=== PATIENT | female | born 1945 | race Caucasian/White ===

== ENCOUNTER 2018-10-07 11:18 | Inpatient (IN) | payer MEDICARE ==
[2018-10-07] MEDS ORDERED: traMADol HCl 50 MG TAB PO PRN (16:50)
[2018-10-07] MEDS ORDERED: Bisacodyl 5 MG TAB PO PRN (16:50)
[2018-10-07] MEDS ORDERED: Methocarbamol 500 MG TAB PO PRN (16:50)
[2018-10-07] MEDS ORDERED: HYDROcodone/Acetaminophen 10/325 mg Tablet PO PRN (16:50)
[2018-10-07] MEDS ORDERED: Ventolin HFA Inhaler 60 PUFF INHALER INH PRN (16:50)
[2018-10-07] MEDS ORDERED: Zolpidem Tartrate 5 MG TAB PO PRN (16:50)
[2018-10-07] MEDS ORDERED: Non-Formulary Item 1 EACH (Acetaminophen [Tylenol] 650 MG) PO SCH (17:00)
[2018-10-07] MEDS ORDERED: Non-Formulary Item 1 EACH (Acetaminophen [Tylenol] 650 MG) PO PRN (17:22)
[2018-10-07] MEDS ORDERED: Acetaminophen 325 MG TAB PO PRN (17:24)
[2018-10-07] MEDS ORDERED: diphenhydrAMINE 25 MG CAP PO PRN (17:39)
[2018-10-07] MEDS: HYDROcodone/Acetaminophen 10/325 mg Tablet PO PRN ×2 (17:50→21:59)
[2018-10-07] MEDS: Famotidine 20 MG TAB PO SCH (20:36)
[2018-10-07] MEDS ORDERED: Dronedarone HCl 400 MG TAB PO SCH (21:00)
--- NOTE | 2018-10-08 00:03 | HP ---
PRINCIPAL DIAGNOSIS: Status post right total shoulder replacement for physical therapy. BRIEF HISTORY: This is a 73-year-old female, who was admitted to the hospital for elective right total shoulder replacement. Postoperative period was uneventful and she was felt to be a candidate for rehabilitation, so transferred here to [place]. The patient is currently resting in bed and denies any complaints. Her family is in the room. Her pain is controlled. Denies any focal numbness, weakness, or fainting spells. PAST MEDICAL HISTORY: 1. Paroxysmal atrial fibrillation. 2. Hypertension. 3. Dyslipidemia. 4. Gastroesophageal reflux disease. 5. History of CHF, but not known whether it is systolic or diastolic. 6. Mitral valve prolapse. PAST SURGICAL HISTORY: 1. Appendectomy. 2. Laminectomy. 3. Hysterectomy. 4. D and C x2. 5. Cardioversion for atrial fibrillation. 6. Recent right shoulder arthroplasty. PSYCHOSOCIAL HISTORY: Denies any alcohol, tobacco, or IV drug abuse. FAMILY HISTORY: Positive for heart disease. MEDICATIONS: She has been transferred here on the following medications; 1. [place] 10/325 every 1 to 2 tabs q.6 p.r.n. 2. Ventolin HFA one puff q.8 p.r.n. 3. Ecotrin 325 daily. 4. Dulcolax tablet 10 mg q.6 p.r.n. 5. Multaq 200 mg in the evening and 400 in the morning . 6. Drisdol 1.25 mg p.o. twice a week. 7. Cozaar 50 mg daily. 8. Robaxin 1500 mg q.i.d. p.r.n. muscle spasm. 9. Lasix 20 mg p.o. daily if systolic blood pressure is elevated more than 140. 10. Potassium 10 mEq daily only if she takes the Lasix 20 mg daily. 11. Tramadol 50 mg q.6 p.r.n. 12. Ambien 5 mg nightly p.r.n. ALLERGIES: NO KNOWN DRUG ALLERGIES. PHYSICAL EXAMINATION: GENERAL: A very pleasant 73-year-old female, who is resting in bed and denies any concerns. Family is in the room. She is alert, awake, and oriented x3. VITAL SIGNS: She is afebrile. Heart rate 63, respirations 16, oxygen saturation 93% on room air, and blood pressure 152/65. HEENT: Normocephalic and atraumatic. Pupils are equally reactive to light and accommodation. NECK: No JVD, thyromegaly, cervical lymphadenopathy, throat exudates, or carotid bruits. RESPIRATORY SYSTEM: Normal vesicular breath sounds heard in all lung cardona. ABDOMEN: Soft and nontender. Bowel sounds heard in all quadrants. EXTREMITIES: Without cyanosis or clubbing. Peripheral pulses are palpable. Right shoulder with dressing and splinting. No neurovascular compromise. CENTRAL NERVOUS SYSTEM: Awake and responsive. Cranial nerves 2 through 12 intact. Generalized weakness. LABORATORY VALUES: None done recently. IMPRESSION: 1. Status post right total shoulder arthroplasty. 2. Hypertension. 3. Paroxysmal atrial fibrillation. 4. Mitral valve prolapse. 5. Dyslipidemia. 6. Osteoarthritis. PLAN: 1. Continue discharge medications. 2. Heart healthy diet. 3. Monitor heart rate and rhythm. 4. Orthopedic precautions and incision care. 5. DVT prophylaxis. 6. Decubitus precaution. 7. Stress ulcer prophylaxis. 8. Routine laboratory values with CBC and BMP. 9. PT/OT evaluation and treat. 10. Discussed with the patient and family in detail. All questions answered. Job ID: [id number]
[2018-10-08] MEDS: HYDROcodone/Acetaminophen 10/325 mg Tablet PO PRN ×3 (02:09→22:04)
[2018-10-08 05:22] LABS: #Basophils 0.1 thou/uL (0.0-0.2); #Eosinphils 0.3 thou/uL (0.0-0.7); #Lymphocytes 1.2 thou/uL (1.20-3.40); #Monocytes 0.5 thou/uL (0.11-0.59); #Neutrophils 3.5 thou/uL (1.40-6.50); %Basophils 1.2 % (0.0-1.0); %Eosinophils 5.6 % (0.0-10.0); %Lymphocytes 20.9 % (21.0-51.0); %Monocytes 8.8 % (0.0-10.0); %Neutrophils 63.5 % (42.0-75.0); Hemoglobin 9.9 g/dL (12.0-16.0); Mean Corpuscular HGB CONC 31.6 g/dL (32.0-36.0); Mean Corpuscular Hemoglobin 31.3 pg (27.0-31.0); Mean Corpuscular Volume 99.2 fL (78.0-98.0); Mean Platelet Volume 7.4 fL (7.4-10.4); Platelet Count 268 thou/uL (130-400); RBC Distribution Width 12.2 % (11.5-14.5); Red Blood Cell (RBC) Count 3.14 mill/uL (4.20-5.40); White Blood Cell (WBC) Count 5.6 thou/uL (4.8-10.8)
[2018-10-08 05:38] LABS: Anion Gap 12 mmol/L (10-20); BUN (Urea Nitrogen) 17 mg/dL (9.8-20.1); Calc. Creatinine Clearance 102 mL/min (70-130); Calcium 8.4 mg/dL (7.8-10.44); Carbon Dioxide 28 mmol/L (23-31); Chloride 101 mmol/L (98-107); Estimated GFR-MDRD 77; Glucose 101 mg/dL (83-110); Potassium 4.2 mmol/L (3.5-5.1); Sodium 137 mmol/L (136-145)
[2018-10-08] MEDS: Famotidine 20 MG TAB PO SCH ×2 (08:13→20:31)
[2018-10-08] MEDS ORDERED: Multivitamin W/ Minerals 1 TAB PO SCH (09:00)
[2018-10-08] MEDS ORDERED: Losartan 25 MG TAB PO SCH (09:00)
[2018-10-08] MEDS ORDERED: Magnesium Oxide 400 MG TAB PO SCH (09:00)
[2018-10-08] MEDS ORDERED: Aspirin 325 mg Enteric Coated Tablet PO SCH (09:00)
[2018-10-08] MEDS ORDERED: Non-Formulary Item 1 EACH (Vitamin E [Vitamin E] 400 UNIT) PO SCH (09:00)
[2018-10-08] MEDS ORDERED: Potassium Chloride 10 MEQ TAB PO SCH (09:00)
[2018-10-08] MEDS ORDERED: Ergocalciferol 1.25 MG(50,000 UNITS) CAP PO SCH ×2 (09:00→11:59)
[2018-10-08] MEDS ORDERED: diphenhydrAMINE 25 MG CAP PO PRN (11:59)
[2018-10-08] MEDS ORDERED: Bisacodyl 5 MG TAB PO PRN (11:59)
[2018-10-08] MEDS ORDERED: Methocarbamol 500 MG TAB PO PRN (12:00)
[2018-10-08] MEDS ORDERED: traMADol HCl 50 MG TAB PO PRN (12:01)
[2018-10-08] MEDS ORDERED: Ventolin HFA Inhaler 60 PUFF INHALER INH PRN (12:01)
[2018-10-08] MEDS ORDERED: Acetaminophen 325 MG TAB PO PRN (12:02)
[2018-10-08] MEDS ORDERED: Zolpidem Tartrate 5 MG TAB PO PRN (12:02)
--- NOTE | 2018-10-08 13:20 | PRG ---
DATE OF SERVICE: 10/08/2018 SUBJECTIVE: Ms. Klein is doing well. Denies any complaints. Resting comfortably. She would like PlexiPulses because she has lymphedema. She is getting up and moving around. Denies any other concerns or questions. Son is in the room. OBJECTIVE: VITAL SIGNS: She is afebrile, heart rate 62, respirations 16, oxygen saturation 96% on room air, and blood pressure 144/79. CARDIOVASCULAR SYSTEM: S1 and S2 plus. RESPIRATORY SYSTEM: Normal vesicular breath sounds. ABDOMEN: Soft and nontender. Bowel sounds heard in all quadrants. EXTREMITIES: Without cyanosis or clubbing. Right shoulder incision with dressing and right arm in a sling/splint. CENTRAL NERVOUS SYSTEM: Awake and responsive. Cranial nerves 2 through 12 intact. Generalized weakness. LABORATORY VALUES: White count is 5.6, H and H are 9.9 and 31.2. Sodium 137, potassium 4.2, BUN and creatinine pf 17 and 0.74. IMPRESSION: 1. Status post right total shoulder arthroplasty for osteoarthritis. 2. Paroxysmal atrial fibrillation. 3. Hypertension. 4. Dyslipidemia. 5. Gastroesophageal reflux disease. 6. History of lymphedema. 7. Mitral valve prolapse. 8. Deconditioning. PLAN: 1. Continue heart healthy diet. 2. Monitor heart rate and rhythm. 3. DVT prophylaxis with PlexiPulses. 4. Decubitus precautions. 5. Orthopedic precautions. 6. Pain control. 7. Routine laboratory values. 8. Continue physical therapy. 9. Discussed with the patient in detail. All questions answered. Job ID: [id number]
[2018-10-08] MEDS: Dronedarone HCl 400 MG TAB PO SCH (20:32)
[2018-10-09] MEDS: Aspirin 325 mg Enteric Coated Tablet PO SCH (09:45)
[2018-10-09] MEDS: Vitamin E 400 UNITS CAP PO SCH (09:46)
[2018-10-09] MEDS: Famotidine 20 MG TAB PO SCH ×2 (09:46→21:24)
[2018-10-09] MEDS: Losartan 25 MG TAB PO SCH (09:46)
[2018-10-09] MEDS: Potassium Chloride 10 MEQ TAB PO SCH (09:46)
[2018-10-09] MEDS: Multivitamin W/ Minerals 1 TAB PO SCH (09:47)
[2018-10-09] MEDS: Magnesium Oxide 400 MG TAB PO SCH (09:52)
[2018-10-09] MEDS: HYDROcodone/Acetaminophen 10/325 mg Tablet PO PRN ×3 (09:52→21:24)
[2018-10-09] MEDS: Dronedarone HCl 400 MG TAB PO SCH (21:23)
[2018-10-10] MEDS: Aspirin 325 mg Enteric Coated Tablet PO SCH (09:00)
[2018-10-10] MEDS: Magnesium Oxide 400 MG TAB PO SCH (09:00)
[2018-10-10] MEDS: Multivitamin W/ Minerals 1 TAB PO SCH (09:00)
[2018-10-10] MEDS: HYDROcodone/Acetaminophen 10/325 mg Tablet PO PRN ×3 (09:00→21:19)
[2018-10-10] MEDS: Famotidine 20 MG TAB PO SCH ×2 (09:00→21:19)
[2018-10-10] MEDS: Potassium Chloride 10 MEQ TAB PO SCH (09:00)
[2018-10-10] MEDS: Vitamin E 400 UNITS CAP PO SCH (09:00)
[2018-10-10] MEDS: Losartan 25 MG TAB PO SCH (09:01)
--- NOTE | 2018-10-10 10:45 | PRG ---
DATE OF SERVICE: 10/10/2018 SUBJECTIVE: Ms. Klein is doing the same. Denies any complaints. Pain is controlled. Discussed with nursing. OBJECTIVE: VITAL SIGNS: She is afebrile, heart rate 59, respirations 18, oxygen saturation 94% on room air, blood pressure 143/62. CARDIOVASCULAR SYSTEM: S1 and S2 plus. RESPIRATORY SYSTEMS: Normal vesicular breath sounds. ABDOMEN: Soft, obese, nontender. Bowel sounds heard in all quadrants. EXTREMITIES: Without cyanosis or clubbing. A 2+ edema to the lower extremities. Right shoulder incision with dressing and is in a splint. CENTRAL NERVOUS SYSTEM: Awake and responsive. Cranial nerves 2 through 12 grossly intact. Generalized weakness. IMPRESSION: 1. Right shoulder arthroplasty. 2. Paroxysmal atrial fibrillation. 3. Mitral valve prolapse. 4. Chronic lymphedema. 5. Hypertension. 6. Dyslipidemia. 7. Gastroesophageal reflux disease. PLAN: 1. Continue current medications. 2. Heart-healthy diet. 3. Monitor heart rate and rhythm. 4. Orthopedic precautions. 5. DVT and stress ulcer prophylaxis. 6. Decubitus precaution. 7. Physical therapy. 8. Routine laboratory values. Job ID: [id number]
--- NOTE | 2018-10-10 10:52 | PRG ---
DATE OF SERVICE: 10/09/2018 SUBJECTIVE: Ms. Klein is doing well. Denies any complaints. Feels like the PlexiPulse is helping. She is up on the side of her bed and just finished her lunch. Pain is controlled. Discussed with nursing. OBJECTIVE: VITAL SIGNS: She is afebrile, heart rate 62, respirations 20, oxygen saturation 96% on room air, and blood pressure 114/71. CARDIOVASCULAR SYSTEM: S1 and S2 plus. RESPIRATORY SYSTEM: Normal vesicular breath sounds. ABDOMEN: Soft, nontender. Bowel sounds heard in all quadrants. EXTREMITIES: Without cyanosis or clubbing. Chronic lymphedema. Right shoulder with dressing and in a splint. IMPRESSION: 1. Status post right total shoulder arthroplasty for osteoarthritis. 2. Paroxysmal atrial fibrillation. 3. Hypertension. 4. Dyslipidemia. 5. Gastroesophageal reflux disease. 6. Lymphedema and deconditioning. PLAN: 1. Continue heart healthy diet. 2. Monitor heart rate and rhythm. 3. Monitor blood pressure and adjust medications as needed. 4. Continue PlexiPulse. 5. Decubitus precautions. 6. Orthopedic precaution. 7. Routine laboratory values. 8. Continue physical therapy. 9. Discussed with the patient in detail. All questions answered. Job ID: [id number]
[2018-10-10] MEDS: Senokot S 8.6-50 MG TAB PO SCH (21:17)
[2018-10-10] MEDS: Dronedarone HCl 400 MG TAB PO SCH (21:18)
[2018-10-11] MEDS: HYDROcodone/Acetaminophen 10/325 mg Tablet PO PRN ×2 (04:07→21:03)
[2018-10-11] MEDS: Losartan 25 MG TAB PO SCH (08:50)
[2018-10-11] MEDS: Multivitamin W/ Minerals 1 TAB PO SCH (08:51)
[2018-10-11] MEDS: Magnesium Oxide 400 MG TAB PO SCH (08:51)
[2018-10-11] MEDS: Vitamin E 400 UNITS CAP PO SCH (08:51)
[2018-10-11] MEDS: Potassium Chloride 10 MEQ TAB PO SCH (08:51)
[2018-10-11] MEDS: Famotidine 20 MG TAB PO SCH ×2 (08:51→21:05)
[2018-10-11] MEDS: Aspirin 325 mg Enteric Coated Tablet PO SCH (08:51)
[2018-10-11] MEDS: Dronedarone HCl 400 MG TAB PO SCH ×2 (09:12→21:05)
[2018-10-11] MEDS: Senokot S 8.6-50 MG TAB PO SCH (21:03)
[2018-10-12] MEDS: HYDROcodone/Acetaminophen 10/325 mg Tablet PO PRN ×2 (03:19→23:59)
[2018-10-12 03:42] VITALS: BMI 36.6
--- NOTE | 2018-10-12 07:49 | PRG ---
DATE OF SERVICE: 10/11/[address] Heriberto Reyes. SUBJECTIVE: The patient is a very pleasant 73-year-old white female, who has undergone a right shoulder replacement and is doing well with controlled pain and working with therapy. She has had complications of paroxysmal atrial fibrillation and has not had any recurrences lately. She also has hypertension, which has been well controlled with no shortness of breath, headaches, or dizziness. OBJECTIVE: VITAL SIGNS: Shows her this time to have temperature of 96.6, pulse 68, respirations 18, O2 saturations 93% on room air, and blood pressure 145/64. LUNGS: Clear. CARDIAC: Shows regular rhythm. ABDOMEN: Soft and nontender. Right shoulder is in a shoulder immobilizer. SKIN AND EXTREMITIES: Otherwise show no edema, clubbing, or cyanosis. ASSESSMENT: 1. Resolving right shoulder arthroplasty. 2. Paroxysmal atrial fibrillation, sinus rhythm at this time. 3. Mitral valve prolapse. 4. Chronic lymphedema, appears to be stable. 2+ edema. 5. Hypertension, controlled to goal. 6. Gastroesophageal reflux, asymptomatic. PLAN: 1. Review labs. 2. Review therapy notes. 3. Continue to monitor heart rate and rhythm. 4. Continue pain relief as needed. 5. Continue PT and OT. 6. Continue stress ulcer prophylaxis. Job ID: [id number]
[2018-10-12] MEDS: Losartan 25 MG TAB PO SCH (08:39)
[2018-10-12] MEDS: Dronedarone HCl 400 MG TAB PO SCH ×2 (08:40→20:33)
[2018-10-12] MEDS: Multivitamin W/ Minerals 1 TAB PO SCH (08:40)
[2018-10-12] MEDS: Vitamin E 400 UNITS CAP PO SCH (08:40)
[2018-10-12] MEDS: Magnesium Oxide 400 MG TAB PO SCH (08:40)
[2018-10-12] MEDS: Potassium Chloride 10 MEQ TAB PO SCH (08:40)
[2018-10-12] MEDS: Aspirin 325 mg Enteric Coated Tablet PO SCH (08:40)
[2018-10-12] MEDS: Ergocalciferol 1.25 MG(50,000 UNITS) CAP PO SCH (08:40)
[2018-10-12] MEDS: Famotidine 20 MG TAB PO SCH ×2 (08:40→20:34)
--- NOTE | 2018-10-12 19:42 | PRG ---
DATE OF SERVICE: 10/12/2018 SUBJECTIVE: The patient is a 73-year-old white female, who has undergone a right shoulder replacement and is doing well with controlled pain, rested well today. She has had no problems with palpitations or chest pain. Blood pressure has been well controlled. She has been eating well. She did have a shower today. She is asking when she can see her surgeon, Dr. Davies again and she is supposed to make a call tomorrow schedule appointment. OBJECTIVE: VITAL SIGNS: Shows her blood pressure is 150/66, temperature is 97.5, pulse 60, respirations 16, and O2 sats 95% on room air. LUNGS: Clear. CARDIAC: Showed regular rhythm. ABDOMEN: Soft and nontender. SKIN/EXTREMITIES: Right shoulder in immobilizer. Pedal pulse 2+ equal. Good warmth and sensation in the right hand. ASSESSMENT: 1. Resolving right shoulder replacement. 2. Paroxysmal atrial fibrillation with no recurrence this time. 3. Chronic lymphedema, stable 2+ edema. 4. Hypertension, controlled to goal. 5. Gastroesophageal reflux, asymptomatic. PLAN: 1. Continue PT/OT. 2. Contact surgeon tomorrow followup. 3. Continue pain relief as needed. 4. Continue stress ulcer prophylaxis. 5. Continue to monitor for recurrent atrial fibrillation. Dr. Reyes to be back tonight at 9 o'clock. Job ID: [id number]
[2018-10-12] MEDS: Senokot S 8.6-50 MG TAB PO SCH (20:33)
[2018-10-13] MEDS: HYDROcodone/Acetaminophen 10/325 mg Tablet PO PRN ×2 (07:30→21:20)
[2018-10-13] MEDS: Losartan 25 MG TAB PO SCH (08:35)
[2018-10-13] MEDS: Potassium Chloride 10 MEQ TAB PO SCH (08:35)
[2018-10-13] MEDS: Aspirin 325 mg Enteric Coated Tablet PO SCH (08:37)
[2018-10-13] MEDS: Magnesium Oxide 400 MG TAB PO SCH (08:37)
[2018-10-13] MEDS: Famotidine 20 MG TAB PO SCH ×2 (08:37→21:22)
[2018-10-13] MEDS: Vitamin E 400 UNITS CAP PO SCH (08:38)
[2018-10-13] MEDS: Multivitamin W/ Minerals 1 TAB PO SCH (08:39)
[2018-10-13] MEDS: Dronedarone HCl 400 MG TAB PO SCH ×2 (08:39→21:21)
--- NOTE | 2018-10-13 10:10 | PRG ---
DATE OF SERVICE: 10/13/2018 SUBJECTIVE: Ms. Klein is doing well. Plan is to schedule her with Orthopedics for followup, so that we can get some instructions on weightbearing and therapy restrictions. She is doing well otherwise. No concerns or questions. OBJECTIVE: VITAL SIGNS: She is afebrile. Heart rate 64, respirations 16, oxygen saturation 96% on room air, and blood pressure 153/67. CARDIOVASCULAR SYSTEM: S1 and S2 plus. RESPIRATORY SYSTEM: Normal vesicular breath sounds. ABDOMEN: Soft and nontender. Bowel sounds heard in all quadrants. EXTREMITIES: Without cyanosis or clubbing. Right shoulder incision with dressing. Right arm in a splint. IMPRESSION: 1. Status post right shoulder arthroplasty. 2. Chronic lymphedema. 3. Paroxysmal atrial fibrillation. 4. Mitral valve prolapse. 5. Hypertension. 6. Dyslipidemia. 7. Gastroesophageal reflux disease. PLAN: 1. Continue current medications. 2. Orthopedic precautions. 3. Followup appointment with Ortho. 4. DVT and stress ulcer prophylaxis. 5. Decubitus precautions. 6. Monitor heart rate and rhythm. 7. Routine laboratory values. Job ID: [id number]
[2018-10-13] MEDS: Senokot S 8.6-50 MG TAB PO SCH (21:18)
[2018-10-14] MEDS: HYDROcodone/Acetaminophen 10/325 mg Tablet PO PRN ×3 (02:42→21:09)
[2018-10-14] MEDS: Aspirin 325 mg Enteric Coated Tablet PO SCH (09:27)
[2018-10-14] MEDS: Dronedarone HCl 400 MG TAB PO SCH ×2 (09:28→21:05)
[2018-10-14] MEDS: Famotidine 20 MG TAB PO SCH ×2 (09:28→21:05)
[2018-10-14] MEDS: Losartan 25 MG TAB PO SCH (09:29)
[2018-10-14] MEDS: Multivitamin W/ Minerals 1 TAB PO SCH (09:29)
[2018-10-14] MEDS: Potassium Chloride 10 MEQ TAB PO SCH (09:29)
[2018-10-14] MEDS: Magnesium Oxide 400 MG TAB PO SCH (09:29)
[2018-10-14] MEDS: Vitamin E 400 UNITS CAP PO SCH (09:30)
--- NOTE | 2018-10-14 10:02 | PRG ---
DATE OF SERVICE: 10/14/2018 SUBJECTIVE: Ms. Klein is doing well. She has an appointment with her orthopedic surgeon tomorrow. Denies any questions or concerns. Her grandson is in the room. OBJECTIVE: VITAL SIGNS: She is afebrile. Heart rate is 59, respirations 20, oxygen saturation 94% on room air, and blood pressure 138/63. CARDIOVASCULAR SYSTEM: S1 and S2 plus. RESPIRATORY SYSTEM: Normal vesicular breath sounds. ABDOMEN: Soft and nontender. Bowel sounds heard in all quadrants. EXTREMITIES: Without cyanosis or clubbing. Chronic lymphedema. Right shoulder incision with dressing, and right arm in a sling. CENTRAL NERVOUS SYSTEM: Awake and responsive. Cranial nerves 2 through 12 intact. Generalized weakness. IMPRESSION: 1. Status post right shoulder arthroplasty. 2. Chronic lymphedema. 3. Paroxysmal atrial fibrillation. 4. Mitral valve prolapse. 5. Deconditioning. 6. Hypertension. 7. Gastroesophageal reflux disease. PLAN: 1. Continue current medications. 2. Monitor heart rate and rhythm. 3. Continue PlexiPulses. 4. Orthopedic precautions. 5. Physical therapy. 6. Routine laboratory values. 7. Discussed with the patient and family in detail. All questions answered. Job ID: [id number]
[2018-10-14] MEDS: Senokot S 8.6-50 MG TAB PO SCH (21:05)
[2018-10-15] MEDS: HYDROcodone/Acetaminophen 10/325 mg Tablet PO PRN ×4 (04:35→23:59)
[2018-10-15 06:15] LABS: #Basophils 0.1 thou/uL (0.0-0.2); #Eosinphils 0.2 thou/uL (0.0-0.7); #Lymphocytes 1.1 thou/uL (1.20-3.40); #Monocytes 0.7 thou/uL (0.11-0.59); #Neutrophils 4.7 thou/uL (1.40-6.50); %Basophils 1.5 % (0.0-1.0); %Eosinophils 3.1 % (0.0-10.0); %Neutrophils 69.4 % (42.0-75.0); Hemoglobin 10.3 g/dL (12.0-16.0); Mean Corpuscular HGB CONC 32.7 g/dL (32.0-36.0); Mean Corpuscular Hemoglobin 32.2 pg (27.0-31.0); Mean Corpuscular Volume 98.4 fL (78.0-98.0); Mean Platelet Volume 7.9 fL (7.4-10.4); Platelet Count 154 thou/uL (130-400); RBC Distribution Width 12.7 % (11.5-14.5); Red Blood Cell (RBC) Count 3.19 mill/uL (4.20-5.40); White Blood Cell (WBC) Count 6.8 thou/uL (4.8-10.8)
[2018-10-15 06:34] LABS: Anion Gap 12 mmol/L (10-20); BUN (Urea Nitrogen) 20 mg/dL (9.8-20.1); Calc. Creatinine Clearance 110 mL/min (70-130); Calcium 8.4 mg/dL (7.8-10.44); Carbon Dioxide 25 mmol/L (23-31); Chloride 108 mmol/L (98-107); Estimated GFR-MDRD 84; Glucose 102 mg/dL (83-110); Potassium 4.2 mmol/L (3.5-5.1); Sodium 141 mmol/L (136-145)
[2018-10-15] MEDS: Potassium Chloride 10 MEQ TAB PO SCH (09:06)
[2018-10-15] MEDS: Multivitamin W/ Minerals 1 TAB PO SCH (09:06)
[2018-10-15] MEDS: Ergocalciferol 1.25 MG(50,000 UNITS) CAP PO SCH (09:06)
[2018-10-15] MEDS: Famotidine 20 MG TAB PO SCH ×2 (09:06→19:34)
[2018-10-15] MEDS: Losartan 25 MG TAB PO SCH (09:06)
[2018-10-15] MEDS: Aspirin 325 mg Enteric Coated Tablet PO SCH (09:06)
[2018-10-15] MEDS: Dronedarone HCl 400 MG TAB PO SCH ×2 (09:06→19:33)
[2018-10-15] MEDS: Magnesium Oxide 400 MG TAB PO SCH (09:07)
[2018-10-15] MEDS: Vitamin E 400 UNITS CAP PO SCH (09:07)
--- NOTE | 2018-10-15 13:39 | PRG ---
DATE OF SERVICE: 10/15/2018 SUBJECTIVE: Ms. Klein is doing well, denies any complaints. She is waiting to be transported to her orthopedic appointment, so that she can get instructions on weightbearing and I increased range of motion. OBJECTIVE: VITAL SIGNS: She is afebrile. Heart rate is 59, respirations 16, oxygen saturation 98% on room air, and blood pressure 134/61. CARDIOVASCULAR SYSTEM: S1 and S2 plus. RESPIRATORY SYSTEM: Normal vesicular breath sounds. ABDOMEN: Soft and nontender. Bowel sounds heard in all quadrants. EXTREMITIES: Without cyanosis or clubbing. Right shoulder incision with dressing. Right arm in a splint. CENTRAL NERVOUS SYSTEM: Awake and responsive. Cranial nerves 2 through 12 grossly intact. Generalized weakness. LABORATORY VALUES: White count is 6.8, hemoglobin and hematocrit of 10.3 and 31.4. Sodium 141, potassium 4.2, BUN and creatinine are 20 and 0.68. IMPRESSION: 1. Status post right shoulder arthroplasty. 2. Lymphedema in her legs, which is chronic. 3. Deconditioning. 4. Paroxysmal atrial fibrillation. 5. Mitral valve prolapse. 6. Hypertension. 7. Gastroesophageal reflux disease. PLAN: 1. Await Orthopedic recommendation. 2. Continue current medications. 3. Monitor heart rate and rhythm. 4. Continue PlexiPulses. 5. Decubitus precaution. 6. Incision care. 7. Orthopedic precautions. 8. Routine laboratory values. 9. Continue PT and OT. Job ID: [id number]
[2018-10-15] MEDS: Senokot S 8.6-50 MG TAB PO SCH (19:33)
[2018-10-16] MEDS: Dronedarone HCl 400 MG TAB PO SCH (09:37)
[2018-10-16] MEDS: Famotidine 20 MG TAB PO SCH (09:37)
[2018-10-16] MEDS: Magnesium Oxide 400 MG TAB PO SCH (09:37)
[2018-10-16] MEDS: Losartan 25 MG TAB PO SCH (09:37)
[2018-10-16] MEDS: Aspirin 325 mg Enteric Coated Tablet PO SCH (09:37)
[2018-10-16] MEDS: Multivitamin W/ Minerals 1 TAB PO SCH (09:37)
[2018-10-16] MEDS: Potassium Chloride 10 MEQ TAB PO SCH (09:37)
[2018-10-16] MEDS: Vitamin E 400 UNITS CAP PO SCH (09:37)
[2018-10-16 11:20] VITALS: BP 141/65; TEMP 97.5
--- NOTE | 2018-10-16 14:14 | DIS ---
DATE OF ADMISSION: 10/07/2018 DATE OF DISCHARGE: 10/16/2018 PRINCIPAL DIAGNOSIS: Right shoulder arthroplasty for osteoarthritis. SECONDARY DIAGNOSES: 1. Paroxysmal atrial fibrillation. 2. Mitral valve prolapse. 3. Lymphedema of the lower extremities. 4. Dyslipidemia. 5. Gastroesophageal reflux disease. COMPLICATIONS: None. ADVERSE REACTIONS: None. PROCEDURES: None. CONSULTATIONS: Physical Therapy and Occupational Therapy. HOSPITAL COURSE: The patient was admitted as a transfer from [facility] after undergoing elective right total shoulder replacement. She has been participating with therapy here, but not much could be done with the right arm due to the splinting and the limitation of activity per orthopedic instructions. She has been doing well otherwise. She was started on PlexiPulse both for her chronic lymphedema as well as for DVT prophylaxis. She followed up with Orthopedics yesterday, but her insurance apparently denied any further coverage and she did not want to appeal, so she wanted to be discharged home today. She wanted to go home this morning as her daughter can only pick her up this morning, so I advised nursing to continue current medications, and if she needed any prescriptions to let me know, but apparently she did not need any prescriptions. FOLLOWUP: She was advised to follow up with Dr. Hernandez in 5 to 7 days and her PCP in 5 to 7 days. DIET: Heart healthy diet. ACTIVITY: As tolerated with orthopedic precautions. PHYSICAL EXAMINATION: VITAL SIGNS: On the day of discharge, she is afebrile, heart rate 64, respirations 20, oxygen saturation 96% on room air, and blood pressure 141/65. DISCHARGE MEDICATIONS: Same as admission, which are; 1. [place] 10/325 one to two tabs q.6 p.r.n. 2. Ecotrin 325 daily. 3. Dulcolax suppository b.i.d. p.r.n. 4. Multaq 200 mg at night and 400 in the morning. 5. Drisdol 1.25 mg on every Saturday and Saturday. 6. Pepcid 20 b.i.d. 7. Cozaar 50 daily. 8. Mag-Ox 200 daily. 9. Robaxin 1500 mg p.o. q.i.d. p.r.n. 10. Potassium 20 mEq daily. 11. Tramadol 50 mg q.6 p.r.n. 12. Ambien 5 mg p.o. at bedtime p.r.n. For full details, please see chart. Job ID: [id number]
== END 2018-10-16 10:50 | disposition home or self-care (01) | DRG 561 ==
LOC: NAV ACUTE 11:18
PROVIDERS: ADMIT Internal Medicine; ATTEND Internal Medicine
DX: Z47.1 Aftercare following joint replacement surgery (principal); I48.0 Paroxysmal atrial fibrillation; I10 Essential (primary) hypertension; E78.5 Hyperlipidemia, unspecified; K21.9 Gastro-esophageal reflux disease without esophagitis; I34.1 Nonrheumatic mitral (valve) prolapse; R53.81 Other malaise; I89.0 Lymphedema, not elsewhere classified; Z90.49 Acquired absence of other specified parts of digestive tract; Z90.710 Acquired absence of both cervix and uterus; Z79.899 Other long term (current) drug therapy
CPT/HCPCS: 36415; 80048; 85025; Q0163